=== PATIENT | female | born 1995 | race Caucasian/White ===

== ENCOUNTER 2023-04-27 23:03 | Emergency (ER) | payer BC, OTHER ==
[2023-04-27 23:38] LABS: #Basophils 0.1 thou/uL (0.0-0.2); #Eosinphils 0.1 thou/uL (0.0-0.7); #Lymphocytes 4.2 thou/uL (1.20-3.40); #Monocytes 0.7 thou/uL (0.11-0.59); #Neutrophils 5.8 thou/uL (1.40-6.50); %Basophils 1.2 % (0.0-1.0); %Eosinophils 0.8 % (0.0-10.0); %Lymphocytes 38.2 % (21.0-51.0); %Monocytes 6.4 % (0.0-10.0); %Neutrophils 53.4 % (42.0-75.0); Hematocrit 42.5 % (36.0-47.0); Hemoglobin 14.1 g/dL (12.0-16.0); Mean Corpuscular HGB CONC 33.1 g/dL (32.0-36.0); Mean Corpuscular Hemoglobin 29.9 pg (27.0-31.0); Mean Corpuscular Volume 90.2 fl (78.0-98.0); Mean Platelet Volume 9.5 fL (7.4-10.4); Platelet Count 292 10x3/uL (130-400); RBC Distribution Width 11.7 % (11.5-14.5); Red Blood Cell (RBC) Count 4.71 mill/uL (4.20-5.40)
[2023-04-27] MEDS ORDERED: Aspirin Chewable 81 MG TAB ONE (23:48)
[2023-04-27] MEDS ORDERED: Nitroglycerin 0.4 MG TAB 1 EACH ONE (23:49)
[2023-04-27 23:51] LABS: ALT (SGPT) 24 U/L (8-55); AST (SGOT) 18 U/L (5-34); Albumin 4.5 g/dL (3.5-5.0); Alkaline Phosphatase 62 U/L (40-110); Anion Gap 15 mmol/L (10-20); BUN (Urea Nitrogen) 12 mg/dL (7.0-18.7); Bilirubin, Total 0.3 mg/dL (0.2-1.2); Calc. Creatinine Clearance 0 mL/min (70-130); Calcium 9.5 mg/dL (7.8-10.44); Carbon Dioxide 24 mmol/L (22-29); Chloride 105 mmol/L (98-107); Estimated GFR 92; Globulin 3.7 g/dL (2.4-3.5); Glucose 127 mg/dL (70-105); Potassium 3.7 mmol/L (3.5-5.1); Protein, Total 8.2 g/dL (6.0-8.3); Sodium 140 mmol/L (136-145)
[2023-04-27 23:53] LABS: Troponin I Less than 0.010 ng/mL (< 0.028)
[2023-04-27 23:56] LABS: Bilirubin Negative (Negative); Blood, Urine Negative (Negative); Clarity Hazy (Clear); Glucose, Urine (Dipstick) Negative (Negative); Ketone, Urine Trace mg/dL (Negative); Leukocyte Negative (Negative); Nitrite Negative (Negative); Protein, Urine (Dipstick) Negative (Neg-Trace); Urobilinogen 0.2 mg/dL (Less than 2); pH, Urine 7.5 (5.0-9.0)
[2023-04-27 23:57] LABS: Bacteria/HPF Rare-Few HPF (None Seen); CAUTI Indications for Culture Dysuria,urgency,freq
[2023-04-27 23:58] LABS: Urine Culture Reflex No No
[2023-04-27 23:59] LABS: Amphetamine Not Detected (NotDetected); Barbiturates Screen Not Detected (NotDetected); Benzodiazepine Screen Not Detected (NotDetected); Cocaine Metabolite Screen Not Detected (NotDetected); Methadone Not Detected (NotDetected); Methamphetamine Not Detected (NotDetected); Opiate Screen Not Detected (NotDetected); Oxycodone Screen Not Detected (NotDetected); Phencyclidine (PCP) Not Detected (NotDetected); THC/Cannabinoid Screen Not Detected (NotDetected); Tricyclic Screen Not Detected (NotDetected)
[2023-04-28 03:08] LABS: Troponin I Less than 0.010 ng/mL (< 0.028)
[2023-04-28 06:01] LABS: Troponin I Less than 0.010 ng/mL (< 0.028)
[2023-04-28] MEDS ORDERED: Escitalopram Oxalate 10 mg Tablet ONE (08:05)
[2023-04-28] MEDS ORDERED: Nitroglycerin 2% Ointment 1 INCH/1 GM Packet ONE ×2 (10:00→18:56)
[2023-04-28] MEDS ORDERED: Acetaminophen 325 MG TAB ONE (16:14)
[2023-04-28] MEDS ORDERED: Ibuprofen 200 MG TAB ONE (18:32)
[2023-04-28 19:35] LABS: Troponin I Less than 0.010 ng/mL (< 0.028)
[2023-04-28] MEDS ORDERED: QUEtiapine 100 MG TAB ONE (20:40)
[2023-04-29] MEDS ORDERED: Acetaminophen 325 MG TAB ONE (05:51)
[2023-04-29] MEDS ORDERED: Aspirin 325 MG TAB ONE (05:52)
[2023-04-29 06:12] LABS: %Lymphocytes 42.2 % (21.0-51.0); %Monocytes 7.4 % (0.0-10.0); %Neutrophils 48.6 % (42.0-75.0); Hematocrit 38.7 % (36.0-47.0); Hemoglobin 12.8 g/dL (12.0-16.0); Manual Diff?? NO; Mean Corpuscular HGB CONC 33.2 g/dL (32.0-36.0); Mean Corpuscular Hemoglobin 20.8 pg (27.0-31.0); Mean Corpuscular Volume 89.7 fl (78.0-98.0); Mean Platelet Volume 8.6 fL (7.4-10.4); Platelet Count 258 10x3/uL (130-400); RBC Distribution Width 11.6 % (11.5-14.5); Red Blood Cell (RBC) Count 4.31 mill/uL (4.20-5.40); White Blood Cell (WBC) Count 9.7 10x3/uL (4.8-10.8)
[2023-04-29 06:13] LABS: #Basophils 0.1 thou/uL (0.0-0.2); #Eosinphils 0.1 thou/uL (0.0-0.7); #Lymphocytes 4.1 thou/uL (1.20-3.40); #Monocytes 0.7 thou/uL (0.11-0.59); #Neutrophils 4.7 thou/uL (1.40-6.50); %Basophils 0.9 % (0.0-1.0)
[2023-04-29 06:30] LABS: ALT (SGPT) 21 U/L (8-55); AST (SGOT) 14 U/L (5-34); Albumin 4.2 g/dL (3.5-5.0); Anion Gap 14 mmol/L (10-20); BUN (Urea Nitrogen) 13 mg/dL (7.0-18.7); Bilirubin, Total 0.4 mg/dL (0.2-1.2); Calc. Creatinine Clearance 0 mL/min (70-130); Calcium 9.4 mg/dL (7.8-10.44); Carbon Dioxide 24 mmol/L (22-29); Chloride 105 mmol/L (98-107); Estimated GFR 94; Globulin 3.3 g/dL (2.4-3.5); Glucose 108 mg/dL (70-105); Potassium 4.1 mmol/L (3.5-5.1); Protein, Total 7.5 g/dL (6.0-8.3); Sodium 139 mmol/L (136-145); Troponin I Less than 0.010 ng/mL (< 0.028)
[2023-04-29 06:36] LABS: Alkaline Phosphatase 56 U/L (40-110)
== END 2023-04-29 06:51 | disposition short-term general hospital (02) ==
LOC: NAV ERS 23:03
DX: R07.9 Chest pain, unspecified (principal); R06.09 Other forms of dyspnea; R94.39 Abnormal result of other cardiovascular function study
CPT/HCPCS: 36415; 71045; 80053; 80306; 81001; 83880; 84443; 84484; 85025; 93005

== ENCOUNTER 2023-06-03 17:10 | Emergency (ER) | payer OTHER ==
[2023-06-03] MEDS ORDERED: Acetaminophen/Codeine 30-300mg Tablet ONE (17:45)
== END 2023-06-03 18:54 | disposition home or self-care (01) ==
LOC: NAV ERS 17:10
DX: S63.502A Unspecified sprain of left wrist, initial encounter (principal); F17.290 Nicotine dependence, other tobacco product, uncomplicated; X58.XXXA Exposure to other specified factors, initial encounter

== ENCOUNTER 2023-11-06 21:03 | Emergency (ER) | payer OTHER ==
[2023-11-06] MEDS ORDERED: Ondansetron PF 4 MG/2 ML Vial ONE (22:02)
[2023-11-06] MEDS ORDERED: Sodium Chloride 0.9% 1,000 ML ONE (22:03)
[2023-11-06] MEDS ORDERED: Acetaminophen 325 MG TAB ONE (23:24)
[2023-11-06] MEDS ORDERED: Promethazine HCl 25 MG/ML VIAL ONE (23:25)
== END 2023-11-07 01:00 | disposition home or self-care (01) ==
LOC: NAV ERS 21:03
DX: R11.2 Nausea with vomiting, unspecified (principal); R42 Dizziness and giddiness; L29.9 Pruritus, unspecified; K59.00 Constipation, unspecified; Z48.817 Encounter for surgical aftercare following surgery on the skin and subcutaneous tissue; F17.290 Nicotine dependence, other tobacco product, uncomplicated
CPT/HCPCS: 96361; 96365; 96375; J2405; J2550; J7050

== ENCOUNTER 2024-03-07 11:38 | Emergency (ER) | payer OTHER ==
[2024-03-07] MEDS ORDERED: Bacitracin 1 PK ONE (12:03)
== END 2024-03-07 14:34 | disposition home or self-care (01) ==
LOC: NAV ERS 11:38
DX: T63.091A Toxic effect of venom of other snake, accidental (unintentional), initial encounter (principal); R03.0 Elevated blood-pressure reading, without diagnosis of hypertension; E11.9 Type 2 diabetes mellitus without complications; F17.290 Nicotine dependence, other tobacco product, uncomplicated; Z79.84 Long term (current) use of oral hypoglycemic drugs
CPT/HCPCS: 99283

== ENCOUNTER 2024-06-10 14:59 | Emergency (ER) | payer OTHER, SELFPAY ==
[2024-06-10] MEDS ORDERED: Ibuprofen 200 MG TAB ONE (16:17)
== END 2024-06-10 17:22 | disposition home or self-care (01) ==
LOC: NAV ERS 14:59
DX: R59.0 Localized enlarged lymph nodes (principal); B34.9 Viral infection, unspecified; F17.290 Nicotine dependence, other tobacco product, uncomplicated; Z79.84 Long term (current) use of oral hypoglycemic drugs
CPT/HCPCS: 87081; 87428; 87430; 99283

== ENCOUNTER 2024-06-25 21:14 | Emergency (ER) | payer BC, SELFPAY ==
[2024-06-25] MEDS ORDERED: Ibuprofen 200 MG TAB ONE (22:22)
[2024-06-25] MEDS ORDERED: Sodium Chloride 0.9% 1,000 ML ONE (22:22)
[2024-06-25 22:33] LABS: #Basophils 0.1 thou/uL (0.0-0.2); #Lymphocytes 0.7 thou/uL (1.20-3.40); #Monocytes 0.5 thou/uL (0.11-0.59); #Neutrophils 2.4 thou/uL (1.40-6.50); %Basophils 1.4 % (0.0-1.0); %Eosinophils 0.1 % (0.0-10.0); %Monocytes 12.6 % (0.0-10.0); Hematocrit 38.2 % (36.0-47.0); Hemoglobin 12.3 g/dL (12.0-16.0); Mean Corpuscular HGB CONC 32.2 g/dL (32.0-36.0); Mean Corpuscular Hemoglobin 27.1 pg (27.0-31.0); Mean Corpuscular Volume 84.2 fl (78.0-98.0); Mean Platelet Volume 9.2 fL (7.4-10.4); Platelet Count 163 10x3/uL (130-400); RBC Distribution Width 11.4 % (11.5-14.5); Red Blood Cell (RBC) Count 4.54 mill/uL (4.20-5.40); White Blood Cell (WBC) Count 3.6 10x3/uL (4.8-10.8)
[2024-06-25 22:37] LABS: Bilirubin Small (Negative); Blood, Urine Negative (Negative); Clarity Clear (Clear); Glucose, Urine (Dipstick) Negative (Negative); Ketone, Urine Trace mg/dL (Negative); Leukocyte Negative (Negative); Nitrite Negative (Negative); Protein, Urine (Dipstick) 100 mg/dL (Neg-Trace)
[2024-06-25 22:39] LABS: Pregnancy Test - Urine (BHCG) Negative (Negative); Pregu Control Background? CLEAR/WHITE (CLR/WHITE); Pregu Control Bar Appear? YES (CONTROL BAR); Specific Gravity 1.028 (1.002-1.036)
[2024-06-25 22:42] LABS: Bacteria/HPF 1+ HPF (None Seen); CAUTI Indications for Culture Pelvic or flank pain; RBC/HPF 0-3 HPF (0-3); Squamous Epithelial 21-50 HPF (0-3); Urine Culture Reflex No No; WBC/HPF 0-3 HPF (0-3)
[2024-06-25 22:44] LABS: ALT (SGPT) 90 U/L (Less than 34); AST (SGOT) 99 U/L (11-34); Albumin 3.9 g/dL (3.1-4.5); Alkaline Phosphatase 92 U/L (40-110); Anion Gap 15 mmol/L (10-20); BUN (Urea Nitrogen) 9 mg/dL (7.0-18.7); Bilirubin, Total 1.2 mg/dL (0.3-1.2); Calc. Creatinine Clearance 0 mL/min (70-130); Calcium 9.2 mg/dL (7.8-10.44); Carbon Dioxide 23 mmol/L (22-29); Chloride 101 mmol/L (98-107); Estimated GFR 94; Globulin 3.7 g/dL (2.4-3.5); Glucose 127 mg/dL (70-105); Potassium 3.9 mmol/L (3.5-5.1); Protein, Total 7.6 g/dL (6.0-8.3); Sodium 135 mmol/L (136-145)
[2024-06-25] MEDS ORDERED: Sodium Chloride 0.9% 500 ML ONE (23:17)
[2024-06-25] MEDS ORDERED: Lorazepam 0.5 MG TAB ONE (23:45)
== END 2024-06-25 23:58 | disposition home or self-care (01) ==
LOC: NAV ERS 21:14
DX: F41.9 Anxiety disorder, unspecified (principal); E86.0 Dehydration; R11.2 Nausea with vomiting, unspecified; F17.290 Nicotine dependence, other tobacco product, uncomplicated; E11.9 Type 2 diabetes mellitus without complications; Z79.84 Long term (current) use of oral hypoglycemic drugs
CPT/HCPCS: 80053; 81001; 81025; 85025; 87428; 99284; J7030